=== PATIENT | female | born 1960 | race Caucasian/White ===

== ENCOUNTER 2019-03-26 17:47 | Inpatient (IN) ==
[2019-03-26 18:21] LABS: Bilirubin,Urine Negative (Negative); Blood,Urine Negative (Negative); Clarity,Urine Cloudy (Clear); Color,Urine Yellow (Yellow); Glucose,Urine (UA) Normal (Normal); Ketones,Urine 15 mg/dL (Negative); Leukocyte Esterase,Urine Moderate (Negative); Nitrite,Urine Positive (Negative); Protein,Urine Negative (Neg-Trace); Specific Gravity,Urine 1.006 (1.010-1.025); Urobilinogen,Urine Normal (Normal)
[2019-03-26 18:22] LABS: Bacteria,Urine Many per hpf (None-Few); Hyaline Casts,Urine Few per lpf (None-Few); RBC,Urine 0-3 per hpf (0-3); Squamous Epithelial Cell,Urine Many per lpf (None-Few); WBC,Urine 15-30 per hpf (0-3)
[2019-03-26 18:39] LABS: Basophils # 0.1 K/mcL (0.0-0.2); Basophils % 0.9 %; Eosinophils # 0.1 K/mcL (0.0-0.6); Eosinophils % 1.4 %; Hematocrit 43.9 % (35.3-44.9); Hemoglobin 15.2 g/dL (11.5-15.4); Immature Granulocytes % 0.5 % (0-4); Lymphocytes % 25.4 %; Mean Corpuscular HGB Conc 34.6 g/dL (31.6-35.5); Mean Corpuscular Volume 92.4 fL (83.0-100.0); Monocytes # 0.7 K/mcL (0.0-1.3); Monocytes % 8.3 %; Neutrophils # 5.1 K/mcL (1.6-8.9); Platelet Count 234 K/mcL (140-400); Red Blood Count 4.75 M/mcL (3.82-4.97); Red Cell Distribution Width 12.4 % (11.5-14.5); Segmented Neutrophils % 63.5 %
[2019-03-26] MEDS ORDERED: *HR* LORazepam 2 MG/ML VIAL IM STA (18:40)
--- NOTE | 2019-03-26 18:40 | Emergency Department Note ---
Disposition Clinical Impression: Suicidal ideation Disposition: Still a Patient Referrals: NONE,PCP [Primary Care Provider] - Forms: ED Satisfaction Letter Psych HPI - General Chief Complaint: ED Psychiatric Symptoms Stated Complaint: SI Time Seen by Provider: 03/26/19 18:00 Source: patient Mode of arrival: ambulatory Limitations: no limitations Nursing Notes Reviewed: Yes Vital Signs Reviewed: Yes - History of Present Illness HPI Narrative: 59-year-old female presenting for SI Patient states that she just wants to go to sleep and not wake up Patient denies having active plan Patient with significant life stressors, says that she has lost her second child to an automobile accident within the last 7 months Patient is tearful in room We will get psychiatric workup for medical clearance Pt complaint: suicidal ideation Onset (ago): day(s) Duration: getting worse History of similar episodes: Yes Improves with: none Worsens with: none Associated symptoms: Reports: denies other symptoms Traumatic symptoms: denies traumatic injury Treatments prior to arrival: none Self harm or harm to others: admits thoughts of self harm, denies having a plan - Related Data Home Medications Medication Instructions Recorded Confirmed Albuterol Sulfate [Ventolin Hfa] 90 mcg IH Q4H PRN 11/29/15 12/05/18 Amitriptyline [Elavil] 10 mg PO HS 11/29/15 12/05/18 Baclofen [Lioresal] 10 mg PO TID 11/29/15 12/05/18 Budesonide/Formoterol 80/4.5 2 puff IH BIDR PRN 11/29/15 12/05/18 [Symbicort 80/4.5] Furosemide [Lasix] 40 mg PO BID 11/29/15 12/05/18 Gabapentin [Neurontin] 400 mg PO TID 11/29/15 12/05/18 Lisinopril [Zestril] 20 mg PO DAILY 11/29/15 12/05/18 Multivitamin [Multivitamins] 1 each PO DAILY 11/29/15 12/05/18 Omeprazole [PriLOSEC] 40 mg PO DAILY 11/29/15 12/05/18 SUMAtriptan Succinate [Imitrex] 100 mg PO ONCE PRN 11/29/15 12/05/18 Topiramate [Topamax] 50 mg PO HS 11/29/15 12/05/18 Fluticasone/Salmeterol [Advair Hfa 2 puff IH BID 03/01/16 03/01/16 115-21 Mcg Inhaler] Quetiapine Fumarate [Seroquel] 25 cap PO DAILY 12/05/18 12/05/18 Vilazodone HCl [Viibryd] 20 mg PO DAILY 12/05/18 12/05/18 clonazePAM [Klonopin] 0.5 mg PO BID 12/05/18 12/05/18 Allergies Allergy/AdvReac Type Severity Reaction Status Date / Time azithromycin [From Zithromax] Allergy Severe Difficulty Verified 03/26/19 19:17 Breathing ceftriaxone [From Rocephin] Allergy Severe Difficulty Verified 03/26/19 19:17 Breathing oxycodone [From Percocet] AdvReac Mild Nausea Verified 03/26/19 19:17 propoxyphene AdvReac Mild Nausea Verified 03/26/19 19:17 [From Darvocet-N] All systems ED: reviewed and negative except as stated. Review of Systems: As Per HPI Constitutional: Denies: fever, chills Cardiovascular: Denies: chest pain Respiratory: Denies: dyspnea Gastrointestinal: Denies: abdominal pain, nausea, vomiting, diarrhea, constipation, hematemesis, hematochezia Genitourinary: Denies: hematuria Musculoskeletal: Denies: back pain, neck pain Neurological: Denies: headache, weakness, numbness, paresthesias Past Medical History - Past Medical History Medical history: Reports: asthma, COPD, hypertension Surgical history: Reports: cholecystectomy, hysterectomy, other Psychiatric history: Reports: anxiety, depression - Social History Smoking Status: Never smoker Smokeless Tobacco Status: No Alcohol use: Reports: occasionally Drug use: Reports: none Physical Exam - General Limitations: no limitations General appearance: alert, in no apparent distress - Head Head exam: atraumatic, normocephalic, normal inspection - Eye Eye exam: Present: normal appearance, PERRL, EOMI. Absent: scleral icterus - Neck Neck exam: Present: normal inspection, trachea midline - Chest Chest inspection: Present: normal inspection, symmetric chest wall rise - Respiratory Respiratory exam: Present: normal lung sounds bilaterally. Absent: respiratory distress, wheezes, stridor, accessory muscle use, prolonged expiratory phase - Cardiovascular Cardiovascular exam: Present: regular rate, normal rhythm, normal heart sounds, +S1, +S2. Absent: systolic murmur, diastolic murmur, JVD, +S3, +S4 - Abdominal Exam Abdominal exam: Present: soft, Non-Tender, normal bowel sounds. Absent: distention, guarding, rebound, rigidity, organomegaly - Extremities Exam Extremities exam: Present: normal inspection. Absent: pedal edema - Neurological Exam Neurological exam: Present: alert, oriented X3 - Psychiatric Psychiatric exam: Present: normal affect, normal mood - Skin Skin exam: Present: warm, dry, intact, normal color. Absent: rash, cyanosis, diaphoresis, erythema, pallor, mottled Course Course Narrative: CBC, BMP, urinalysis, urine tox screen, salicylates, EtOH, Tylenol Vital Signs Temperature 98.4 F 03/26/19 17:52 Pulse Rate 81 03/26/19 17:52 Respiratory Rate 16 03/26/19 17:52 Blood Pressure 146/113 03/26/19 17:52 O2 Sat by Pulse Oximetry 96 03/26/19 17:52 Temperature 98.4 F 03/26/19 18:27 Pulse Rate 81 03/26/19 18:27 Respiratory Rate 16 03/26/19 18:27 Blood Pressure 146/113 03/26/19 18:27 O2 Sat by Pulse Oximetry 96 03/26/19 18:27 Oxygen Delivery Oxygen Delivery Room Air Psych - MDM Narrative Medical decision making narrative: Laboratory results negative for acute pathology. Urinalysis shows acute UTI. 100 mg Macrobid given here in ED. Patient is medically cleared for psychiatric evaluation. - Lab Data Result diagrams: 03/26/19 18:13 03/26/19 18:13 Lab Results 03/26/19 03/26/19 03/26/19 Range/Units 18:00 18:00 18:13 WBC 8.0 (4.3-11.1) K/mcL RBC 4.75 (3.82-4.97) M/mcL Hgb 15.2 (11.5-15.4) g/dL Hct 43.9 (35.3-44.9) % MCV 92.4 (83.0-100.0) fL MCH 32.0 (28.0-33.3) pg MCHC 34.6 (31.6-35.5) g/dL RDW 12.4 (11.5-14.5) % Plt Count 234 (140-400) K/mcL MPV 11.0 (9.4-12.4) fL Immature Gran % 0.5 (0-4) % Seg Neutrophils % 63.5 % Lymphocytes % 25.4 % Monocytes % 8.3 % Eosinophils % 1.4 % Basophils % 0.9 % Neutrophils # 5.1 (1.6-8.9) K/mcL Lymphocytes # 2.0 (0.6-4.6) K/mcL Monocytes # 0.7 (0.0-1.3) K/mcL Eosinophils # 0.1 (0.0-0.6) K/mcL Basophils # 0.1 (0.0-0.2) K/mcL Sodium (136-145) mEq/L Potassium (3.5-5.1) mEq/L Chloride (98-107) mEq/L Carbon Dioxide (23-29) mEq/L BUN (6-20) mg/dL Creatinine (0.60-1.20) mg/dL Est GFR ( Amer) (> 60) Est GFR (Non-Af Amer) (> 60) BUN/Creatinine Ratio (6-26) Glucose (70-105) mg/dL Calculated Osmolality (280-300) Calcium (8.6-10.3) mg/dL Urine Color Yellow (Yellow) Urine Clarity Cloudy A (Clear) Urine pH 6.0 (5.0-8.0) pH Units Ur Specific Clifford 1.006 L (1.010-1.025) Urine Protein Negative (Neg-Trace) mg/dL Urine Glucose (UA) Normal (Normal) mg/dL Urine Ketones 15 H (Negative) mg/dL Urine Blood Negative (Negative) Urine Nitrite Positive A (Negative) Urine Bilirubin Negative (Negative) Urine Urobilinogen Normal (Normal) mg/dL Ur Leukocyte Esterase Moderate H (Negative) Urine Microscopic RBC 0-3 (0-3) per hpf Urine Microscopic WBC 15-30 H (0-3) per hpf Ur Squamous Epith Cells Many H (None-Few) per lpf Urine Bacteria Many H (None-Few) per hpf Hyaline Casts Few (None-Few) per lpf Salicylates (15.0-30.0) mg/dL Urine Opiates Screen Negative (Afelya=785) ng/mL Acetaminophen (10-20) mcg/mL Ur Barbiturates Screen Negative (Ubqmow=056) ng/mL Ur Phencyclidine Scrn Negative (Cutoff=25) ng/mL Ur Amphetamines Screen Negative (Ehdmnq=4092) ng/mL U Benzodiazepines Scrn Negative (Yffqmq=289) ng/mL Urine Cocaine Screen Negative (Cutoff= 300) ng/mL U Marijuana (THC) Screen Negative (Cutoff = 50) ng/mL Ur Drug Screen Interp See Below Ethyl Alcohol (Less than 10) mg/dL 03/26/19 Range/Units 18:13 WBC (4.3-11.1) K/mcL RBC (3.82-4.97) M/mcL Hgb (11.5-15.4) g/dL Hct (35.3-44.9) % MCV (83.0-100.0) fL MCH (28.0-33.3) pg MCHC (31.6-35.5) g/dL RDW (11.5-14.5) % Plt Count (140-400) K/mcL MPV (9.4-12.4) fL Immature Gran % (0-4) % Seg Neutrophils % % Lymphocytes % % Monocytes % % Eosinophils % % Basophils % % Neutrophils # (1.6-8.9) K/mcL Lymphocytes # (0.6-4.6) K/mcL Monocytes # (0.0-1.3) K/mcL Eosinophils # (0.0-0.6) K/mcL Basophils # (0.0-0.2) K/mcL Sodium 137 (136-145) mEq/L Potassium 3.0 L (3.5-5.1) mEq/L Chloride 99 (98-107) mEq/L Carbon Dioxide 29 (23-29) mEq/L BUN 12 (6-20) mg/dL Creatinine 0.96 (0.60-1.20) mg/dL Est GFR ( Amer) > 60 (> 60) Est GFR (Non-Af Amer) 59 L (> 60) BUN/Creatinine Ratio 13 (6-26) Glucose 94 (70-105) mg/dL Calculated Osmolality 284 (280-300) Calcium 9.9 (8.6-10.3) mg/dL Urine Color (Yellow) Urine Clarity (Clear) Urine pH (5.0-8.0) pH Units Ur Specific Clifford (1.010-1.025) Urine Protein (Neg-Trace) mg/dL Urine Glucose (UA) (Normal) mg/dL Urine Ketones (Negative) mg/dL Urine Blood (Negative) Urine Nitrite (Negative) Urine Bilirubin (Negative) Urine Urobilinogen (Normal) mg/dL Ur Leukocyte Esterase (Negative) Urine Microscopic RBC (0-3) per hpf Urine Microscopic WBC (0-3) per hpf Ur Squamous Epith Cells (None-Few) per lpf Urine Bacteria (None-Few) per hpf Hyaline Casts (None-Few) per lpf Salicylates < 2.5 L (15.0-30.0) mg/dL Urine Opiates Screen (Uaocld=689) ng/mL Acetaminophen < 10 L (10-20) mcg/mL Ur Barbiturates Screen (Qcqovu=602) ng/mL Ur Phencyclidine Scrn (Cutoff=25) ng/mL Ur Amphetamines Screen (Cfneqq=3741) ng/mL U Benzodiazepines Scrn (Xigale=838) ng/mL Urine Cocaine Screen (Cutoff= 300) ng/mL U Marijuana (THC) Screen (Cutoff = 50) ng/mL Ur Drug Screen Interp Ethyl Alcohol < 10 (Less than 10) mg/dL Psychiatric Medical Clearance - Medical Clearance Checklist Medical History: No Social History Section defined Current Vitals: Last Vital Signs Temp 98.4 F 03/26/19 18:27 Pulse 81 03/26/19 18:27 Resp 16 03/26/19 18:27 BP 146/113 03/26/19 18:27 Pulse Ox 96 03/26/19 18:27 Psychiatric Lab Panel: Drug Levels and Toxicity 03/26/19 03/26/19 18:00 18:13 Urine Opiates Screen Negative Acetaminophen < 10 L Ur Barbiturates Screen Negative Ur Phencyclidine Scrn Negative Ur Amphetamines Screen Negative U Benzodiazepines Scrn Negative Urine Cocaine Screen Negative U Marijuana (THC) Screen Negative Ethyl Alcohol < 10 Abnormal Labs: Abnormal lab results Potassium 3.0 mEq/L (3.5-5.1) L 03/26/19 18:13 Est GFR (Non-Af Amer) 59 (> 60) L 03/26/19 18:13 Cloudy (Clear) A 03/26/19 18:00 Ur Specific Clifford 1.006 (1.010-1.025) L 03/26/19 18:00 15 mg/dL (Negative) H 03/26/19 18:00 Positive (Negative) A 03/26/19 18:00 Ur Leukocyte Esterase Moderate (Negative) H 03/26/19 18:00 15-30 per hpf (0-3) H 03/26/19 18:00 Ur Squamous Epith Cells Many per lpf (None-Few) H 03/26/19 18:00 Many per hpf (None-Few) H 03/26/19 18:00 Salicylates < 2.5 mg/dL (15.0-30.0) L 03/26/19 18:13 Acetaminophen < 10 mcg/mL (10-20) L 03/26/19 18:13 Statement of Medical Clearance: I have evaluated the patient, reviewed diagnostic information, and certify that the patient's medical condition is sufficiently stable that transfer to the psychiatric unit does not pose a significant risk of deterioration.
[2019-03-26 18:42] LABS: Amphetamine Screen,Urine Negative ng/mL (Cutoff=1000); Barbiturate Screen,Urine Negative ng/mL (Cutoff=200); Benzodiazepines Screen,Urine Negative ng/mL (Cutoff=200); Cannabinoid Screen,Urine Negative ng/mL (Cutoff = 50); Cocaine Screen,Urine Negative ng/mL (Cutoff= 300); Opiate Screen,Urine Negative ng/mL (Cutoff=300); Phencyclidine Screen,Urine Negative ng/mL (Cutoff=25)
--- NOTE | 2019-03-26 18:45 | Emergency Department Note ---
Disposition Clinical Impression: Suicidal ideation Disposition: Still a Patient Forms: ED Satisfaction Letter General Adult HPI - General Chief complaint: ED Psychiatric Symptoms Stated complaint: SI Time Seen by Provider: 03/26/19 18:00 Source: patient Mode of arrival: ambulatory Limitations: no limitations Nursing Notes Reviewed: Yes Vital Signs Reviewed: Yes - History of Present Illness HPI Narrative: Attestation note: Patient was seen with the emergency medicine resident/nurse practitioner/physician after school program assistant/transitional resident/medical student: Dr. Rigo Andrade I have personally performed a face to face evaluation on this patient. I have reviewed and agree with history and physical examination patient management and disposition. Briefly the salient points of the case are as follows: 59-year-old female desponded suicidal ideations and for same. Complex family issues she recently lost second child she is not able see her grandchildren she is very despondent she does not have a specific plan but she mentioned specifically she wants to go to sleep and never wake up. Patient does have a prior history of SI and depression. Physical examination is benign she will undergo medical clearance and evaluation by mental health. Dispositional pending Pain Scale: 0 - Related Data Home Medications Medication Instructions Recorded Confirmed Albuterol Sulfate [Ventolin Hfa] 90 mcg IH Q4H PRN 11/29/15 12/05/18 Amitriptyline [Elavil] 10 mg PO HS 11/29/15 12/05/18 Baclofen [Lioresal] 10 mg PO TID 11/29/15 12/05/18 Budesonide/Formoterol 80/4.5 2 puff IH BIDR PRN 11/29/15 12/05/18 [Symbicort 80/4.5] Furosemide [Lasix] 40 mg PO BID 11/29/15 12/05/18 Gabapentin [Neurontin] 400 mg PO TID 11/29/15 12/05/18 Lisinopril [Zestril] 20 mg PO DAILY 11/29/15 12/05/18 Multivitamin [Multivitamins] 1 each PO DAILY 11/29/15 12/05/18 Omeprazole [PriLOSEC] 40 mg PO DAILY 11/29/15 12/05/18 SUMAtriptan Succinate [Imitrex] 100 mg PO ONCE PRN 11/29/15 12/05/18 Topiramate [Topamax] 50 mg PO HS 11/29/15 12/05/18 Fluticasone/Salmeterol [Advair Hfa 2 puff IH BID 03/01/16 03/01/16 115-21 Mcg Inhaler] Quetiapine Fumarate [Seroquel] 25 cap PO DAILY 12/05/18 12/05/18 Vilazodone HCl [Viibryd] 20 mg PO DAILY 12/05/18 12/05/18 clonazePAM [Klonopin] 0.5 mg PO BID 12/05/18 12/05/18 Allergies Allergy/AdvReac Type Severity Reaction Status Date / Time azithromycin [From Zithromax] Allergy Severe Difficulty Verified 12/05/18 10:48 Breathing ceftriaxone [From Rocephin] Allergy Severe Difficulty Verified 12/05/18 10:48 Breathing acetaminophen [From Percocet] AdvReac Mild Nausea Verified 12/05/18 10:48 oxycodone [From Percocet] AdvReac Mild Nausea Verified 12/05/18 10:48 propoxyphene AdvReac Mild Nausea Verified 12/05/18 10:48 [From Darvocet-N] Past Medical History - Past Medical History Medical history: Reports: asthma, COPD, hypertension Surgical history: Reports: cholecystectomy, hysterectomy, other Psychiatric history: Reports: anxiety, depression - Social History Smoking Status: Never smoker Smokeless Tobacco Status: No Alcohol use: Reports: occasionally Drug use: Reports: none Course Vital Signs Temperature 98.4 F 03/26/19 17:52 Pulse Rate 81 03/26/19 17:52 Respiratory Rate 16 03/26/19 17:52 Blood Pressure 146/113 03/26/19 17:52 O2 Sat by Pulse Oximetry 96 03/26/19 17:52 Temperature 98.4 F 03/26/19 18:27 Pulse Rate 81 03/26/19 18:27 Respiratory Rate 16 03/26/19 18:27 Blood Pressure 146/113 03/26/19 18:27 O2 Sat by Pulse Oximetry 96 03/26/19 18:27 Oxygen Delivery Oxygen Delivery Room Air Medical Decision Making - Lab Data Result diagrams: 03/26/19 18:13 Lab Results 03/26/19 03/26/19 03/26/19 Range/Units 18:00 18:00 18:13 WBC 8.0 (4.3-11.1) K/mcL RBC 4.75 (3.82-4.97) M/mcL Hgb 15.2 (11.5-15.4) g/dL Hct 43.9 (35.3-44.9) % MCV 92.4 (83.0-100.0) fL MCH 32.0 (28.0-33.3) pg MCHC 34.6 (31.6-35.5) g/dL RDW 12.4 (11.5-14.5) % Plt Count 234 (140-400) K/mcL MPV 11.0 (9.4-12.4) fL Immature Gran % 0.5 (0-4) % Seg Neutrophils % 63.5 % Lymphocytes % 25.4 % Monocytes % 8.3 % Eosinophils % 1.4 % Basophils % 0.9 % Neutrophils # 5.1 (1.6-8.9) K/mcL Lymphocytes # 2.0 (0.6-4.6) K/mcL Monocytes # 0.7 (0.0-1.3) K/mcL Eosinophils # 0.1 (0.0-0.6) K/mcL Basophils # 0.1 (0.0-0.2) K/mcL Urine Color Yellow (Yellow) Urine Clarity Cloudy A (Clear) Urine pH 6.0 (5.0-8.0) pH Units Ur Specific Lamar 1.006 L (1.010-1.025) Urine Protein Negative (Neg-Trace) mg/dL Urine Glucose (UA) Normal (Normal) mg/dL Urine Ketones 15 H (Negative) mg/dL Urine Blood Negative (Negative) Urine Nitrite Positive A (Negative) Urine Bilirubin Negative (Negative) Urine Urobilinogen Normal (Normal) mg/dL Ur Leukocyte Esterase Moderate H (Negative) Urine Microscopic RBC 0-3 (0-3) per hpf Urine Microscopic WBC 15-30 H (0-3) per hpf Ur Squamous Epith Cells Many H (None-Few) per lpf Urine Bacteria Many H (None-Few) per hpf Hyaline Casts Few (None-Few) per lpf Urine Opiates Screen Negative (Yyfcds=371) ng/mL Ur Barbiturates Screen Negative (Ppcrpv=830) ng/mL Ur Phencyclidine Scrn Negative (Cutoff=25) ng/mL Ur Amphetamines Screen Negative (Jeqyor=6129) ng/mL U Benzodiazepines Scrn Negative (Bhobcy=153) ng/mL Urine Cocaine Screen Negative (Cutoff= 300) ng/mL U Marijuana (THC) Screen Negative (Cutoff = 50) ng/mL Ur Drug Screen Interp See Below
[2019-03-26 18:57] LABS: Acetaminophen < 10 mcg/mL (10-20); BUN/Creatinine Ratio 13 (6-26); Blood Urea Nitrogen 12 mg/dL (6-20); Calcium 9.9 mg/dL (8.6-10.3); Carbon Dioxide 29 mEq/L (23-29); Chloride 99 mEq/L (98-107); Ethanol < 10 mg/dL (Less than 10); Glucose 94 mg/dL (70-105); Osmolality,Calculated 284 (280-300); Salicylate < 2.5 mg/dL (15.0-30.0); Sodium 137 mEq/L (136-145); eGFR For Non-African Americans 59 (> 60)
[2019-03-26] MEDS ORDERED: Ibuprofen 800 MG TABLET PO STA (20:38)
[2019-03-26] MEDS ORDERED: MOM Conc 10 ML UD.LIQ PO PRN (23:54)
[2019-03-26] MEDS ORDERED: *HR* LORazepam 1 MG TABLET PO PRN ×2 (23:54→23:56)
[2019-03-26] MEDS ORDERED: Haloperidol Lactate 5 MG/ML VIAL IM PRN (23:54)
[2019-03-26] MEDS ORDERED: *HR* LORazepam 2 MG/ML VIAL IM PRN (23:54)
[2019-03-26] MEDS ORDERED: Mag Hydrox/Al Hydrox/Simeth 30 ML UDC PO PRN (23:54)
[2019-03-27] MEDS: Gabapentin 300 MG CAPSULE PO SCH ×4 (01:19→20:59)
[2019-03-27] MEDS: Topiramate 25 MG TABLET PO SCH ×2 (01:19→21:00)
[2019-03-27] MEDS: Temazepam 15 MG CAPSULE PO SCH ×2 (01:50→21:01)
[2019-03-27] MEDS ORDERED: Vilazodone Hcl [Viibryd] 40 MG PO SCH (09:00)
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
[2019-03-27] MEDS: Lisinopril 20 MG TABLET PO SCH (09:46)
[2019-03-27] MEDS: Nitrofurantoin (BID) 100 MG CAPSULE PO SCH ×2 (09:46→21:00)
[2019-03-27] MEDS: Furosemide 40 MG TABLET PO SCH ×2 (09:47→16:11)
[2019-03-27] MEDS: BuPROPion XL (24 HR) 150 MG TABLET PO SCH (10:27)
[2019-03-27] MEDS: ARIPiprazole 5 MG TABLET PO SCH (10:27)
[2019-03-27] MEDS: Baclofen 10 MG TABLET PO SCH ×2 (16:11→21:00)
[2019-03-27] MEDS: Mirtazapine 15 MG TABLET PO SCH (21:00)
[2019-03-27] MEDS: Vilazodone Hcl [Viibryd] 40 MG PO SCH (21:06)
[2019-03-28] MEDS: Furosemide 40 MG TABLET PO SCH ×2 (09:05→16:31)
[2019-03-28] MEDS: Baclofen 10 MG TABLET PO SCH ×3 (09:05→21:19)
[2019-03-28] MEDS: ARIPiprazole 5 MG TABLET PO SCH (09:05)
[2019-03-28] MEDS: Lisinopril 20 MG TABLET PO SCH (09:06)
[2019-03-28] MEDS: Gabapentin 300 MG CAPSULE PO SCH ×3 (09:06→21:18)
[2019-03-28] MEDS: Nitrofurantoin (BID) 100 MG CAPSULE PO SCH ×2 (09:06→21:18)
[2019-03-28] MEDS: BuPROPion XL (24 HR) 150 MG TABLET PO SCH (09:06)
[2019-03-28 10:52] LABS: Albumin 4.8 g/dL (3.5-5.7); Albumin/Globulin Ratio 1.9 (1.1-2.2); Bilirubin,Total 0.4 mg/dL (0.3-1.0); Calcium 10.1 mg/dL (8.6-10.3); Chol/HDL Ratio 7.5 (0-4.9); Globulin 2.5 g/dL (2.4-3.5); Total Protein 7.3 g/dL (6.4-8.9)
[2019-03-28 11:04] LABS: Thyroid Stimulating Hormone 0.565 mcIU/mL (0.340-5.600)
[2019-03-28 11:39] LABS: Estimated Average Glucose 117 mg/dl; Hemoglobin A1C 5.7 %
[2019-03-28] MEDS: Mirtazapine 15 MG TABLET PO SCH (21:18)
[2019-03-28] MEDS: Vilazodone Hcl [Viibryd] 40 MG PO SCH (21:19)
[2019-03-28] MEDS: Topiramate 25 MG TABLET PO SCH (21:19)
[2019-03-28] MEDS: Temazepam 15 MG CAPSULE PO SCH (21:19)
--- NOTE | 2019-03-29 06:51 | Psychiatry Progress Note ---
Date of Encounter: 03/28/19 Time of Encounter: 08:00 Subjective Interval history: Patient continues to report feeling very depressed and hopeless. She remains tearful. She continues to have suicidal ideations. She feels somewhat sedated with increased medications. She is not eating. She tried to attend one group but had to leave. Review of Systems Psychiatric: Reports: depression, anxiety, abnormal sleep pattern, suicidal ideation, change in appetite, anhedonia, difficulty concentrating, hopelessness. Denies: homicidal ideation Results - Vital Signs Vital Signs: Temp Pulse Resp BP Pulse Ox 98.8 F 85 16 135/80 94 03/28/19 21:00 03/28/19 21:00 03/28/19 21:00 03/28/19 21:00 03/28/19 21:00 - Labs Labs: Laboratory Results - last 24 hr 03/28/19 03/28/19 10:05 10:05 Sodium 136 Potassium 3.0 L Chloride 101 Carbon Dioxide 26 BUN 14 Creatinine 1.18 Est GFR ( Amer) 57 L Est GFR (Non-Af Amer) 47 L BUN/Creatinine Ratio 12 Glucose 138 H Est Mean Plasma Glucose 117 Hemoglobin A1c 5.7 H Calculated Osmolality 285 Calcium 10.1 Total Bilirubin 0.4 AST 21 ALT 22 Alkaline Phosphatase 100 Serum Total Protein 7.3 Albumin 4.8 Globulin 2.5 Albumin/Globulin Ratio 1.9 Triglycerides 287 H Cholesterol 196 LDL Cholesterol, Calc 113 H VLDL Cholesterol, Calc 57 H HDL Cholesterol 26 L Cholesterol/HDL Ratio 7.5 H TSH 0.565 Assessment and Plan (1) Depression Current visit: Yes Status: Acute Additional Plan: Continue current medications. Encourage group attendance. Supportive therapy. Risks, benefits, side effects, alternatives discussed w/pt: Yes Patient agreeable to treatment: Yes Qualifiers: Depression Type: major depressive disorder Major depression recurrence: recurrent Active/Remission status: currently active Major depression episode severity: severe Psychotic features: without psychotic features Qualified Code(s): F33.2 - Major depressive disorder, recurrent severe without psychotic features Consult Discharge Plan - Plan Referrals: [facility] [Outside] - 04/09/19 2:00 pm (You have an appointment scheduled for , April 30, 2019 at 9:[address] Zina Raines M.D. for medication management. You have an appointment scheduled with Dr. Issa Cunha, PhD on March at 2:00 PM for Counseling. Please contact the office at least 24 hours in advance if you are unable to keep your appointment(s). ) Psychiatry Exam - Constitutional Vitals: Temp Pulse Resp BP Pulse Ox 98.8 F 85 16 135/80 94 03/28/19 21:00 03/28/19 21:00 03/28/19 21:00 03/28/19 21:00 03/28/19 21:00 General appearance: disheveled - Musculoskeletal Gait: slow Station: stooped Strength & Tone: mild weakness - Psychiatric Patient Orientation: Yes Person, Yes Time, Yes Place Level of alertness: Alert Behavior: anxious, tearful Psychomotor activity: Slowed Eye Contact: Minimal Contact Mood Description: Depressed Patient description of mood: sad Affect description: tearful, dysphoric Speech Volume: Soft/Quiet Speech pattern: slowed Language & Vocabulary: consistent with education Thought Process: Intact Thought Content: Yes Suicidal ideation, No Homicidal ideation Perceptual Disturbances: No Auditory hallucinations, No Visual hallucinations Attention Span Ability: Capable of Focused Attention Memory Description: Grossly Intact Patient Reliability: Reliable Historian Fund of knowledge: Yes abstraction ability, Yes aware of current events Intelligence Estimate: Average Judgment: Limited
--- NOTE | 2019-03-29 06:53 | Psychiatry Progress Note ---
Date of Encounter: 03/29/19 Time of Encounter: 06:51 Subjective Interval history: Patient continues to feel very depressed. Feels she has lost all her family now that her daughter will not talk to her. Very fixated on whether or not she should try to make amends of the situation or how to deal moving forward. She continues to report suicidal ideations with a plan to overdose. She is hopeless. Poor sleep. Poor appetite. Review of Systems Psychiatric: Reports: depression, anxiety, abnormal sleep pattern, suicidal ideation, change in appetite, anhedonia, difficulty concentrating, hopelessness. Denies: homicidal ideation Results - Vital Signs Vital Signs: Temp Pulse Resp BP Pulse Ox 98.8 F 85 16 135/80 94 03/28/19 21:00 03/28/19 21:00 03/28/19 21:00 03/28/19 21:00 03/28/19 21:00 - Labs Labs: Laboratory Results - last 24 hr 03/28/19 03/28/19 10:05 10:05 Sodium 136 Potassium 3.0 L Chloride 101 Carbon Dioxide 26 BUN 14 Creatinine 1.18 Est GFR ( Amer) 57 L Est GFR (Non-Af Amer) 47 L BUN/Creatinine Ratio 12 Glucose 138 H Est Mean Plasma Glucose 117 Hemoglobin A1c 5.7 H Calculated Osmolality 285 Calcium 10.1 Total Bilirubin 0.4 AST 21 ALT 22 Alkaline Phosphatase 100 Serum Total Protein 7.3 Albumin 4.8 Globulin 2.5 Albumin/Globulin Ratio 1.9 Triglycerides 287 H Cholesterol 196 LDL Cholesterol, Calc 113 H VLDL Cholesterol, Calc 57 H HDL Cholesterol 26 L Cholesterol/HDL Ratio 7.5 H TSH 0.565 Assessment and Plan (1) Depression Current visit: Yes Status: Acute Plan: Continue hospitalization, Close observation, Suicide Precautions per unit protocol, Encourage participation in unit milieu, Group Therapy, Monitor sleep, Monitor appetite Additional Plan: Continue current medications. Encourage group therapy. Supportive therapy. Risks, benefits, side effects, alternatives discussed w/pt: Yes Patient agreeable to treatment: Yes Qualifiers: Depression Type: major depressive disorder Major depression recurrence: recurrent Active/Remission status: currently active Major depression episode severity: severe Psychotic features: without psychotic features Qualified Code(s): F33.2 - Major depressive disorder, recurrent severe without psychotic features Consult Discharge Plan - Plan Referrals: [facility] [Outside] - 04/09/19 2:00 pm (You have an appointment scheduled for April at 9:[address] Zina Raines M.D. for medication management. You have an appointment scheduled with Dr. Issa Cunha, PhD on March at 2:00 PM for Counseling. Please contact the office at least 24 hours in advance if you are unable to keep your appointment(s). ) Psychiatry Exam - Constitutional Vitals: Temp Pulse Resp BP Pulse Ox 98.8 F 85 16 135/80 94 03/28/19 21:00 03/28/19 21:00 03/28/19 21:00 03/28/19 21:00 03/28/19 21:00 General appearance: disheveled - Musculoskeletal Gait: slow Station: stooped Strength & Tone: mild weakness - Psychiatric Patient Orientation: Yes Person, Yes Time, Yes Place Level of alertness: Alert Behavior: tearful Psychomotor activity: Slowed Eye Contact: Minimal Contact Mood Description: Depressed Patient description of mood: sad Affect description: tearful, dysphoric Speech Volume: Soft/Quiet Speech pattern: slowed Language & Vocabulary: consistent with education Thought Process: Intact Thought Content: Yes Suicidal ideation, No Homicidal ideation, No Overt delusions Perceptual Disturbances: No Auditory hallucinations, No Visual hallucinations Attention Span Ability: Capable of Focused Attention Memory Description: Grossly Intact Patient Reliability: Reliable Historian Fund of knowledge: Yes abstraction ability, Yes aware of current events Intelligence Estimate: Average Judgment: Limited Insight: Partial
[2019-03-29] MEDS: Ibuprofen 400 MG TABLET PO PRN ×3 (07:27→18:08)
[2019-03-29] MEDS: Lisinopril 20 MG TABLET PO SCH (08:43)
[2019-03-29] MEDS: ARIPiprazole 5 MG TABLET PO SCH (08:43)
[2019-03-29] MEDS: BuPROPion XL (24 HR) 150 MG TABLET PO SCH (08:43)
[2019-03-29] MEDS: Gabapentin 300 MG CAPSULE PO SCH ×3 (08:44→21:17)
[2019-03-29] MEDS: Baclofen 10 MG TABLET PO SCH ×3 (08:44→21:20)
[2019-03-29] MEDS: Furosemide 40 MG TABLET PO SCH ×2 (08:44→17:07)
[2019-03-29] MEDS: Nitrofurantoin (BID) 100 MG CAPSULE PO SCH ×2 (08:44→21:18)
[2019-03-29] MEDS: Vilazodone Hcl [Viibryd] 40 MG PO SCH (21:17)
[2019-03-29] MEDS: Mirtazapine 15 MG TABLET PO SCH (21:18)
[2019-03-29] MEDS: Temazepam 15 MG CAPSULE PO SCH (21:20)
[2019-03-29] MEDS: Topiramate 25 MG TABLET PO SCH (21:20)
[2019-03-29] MEDS: hydrOXYzine pamoate 25 MG CAPSULE PO PRN (22:24)
[2019-03-30] MEDS: Ibuprofen 400 MG TABLET PO PRN ×3 (05:07→17:27)
[2019-03-30] MEDS: Nitrofurantoin (BID) 100 MG CAPSULE PO SCH ×2 (08:43→21:11)
[2019-03-30] MEDS: Furosemide 40 MG TABLET PO SCH ×2 (08:43→16:48)
[2019-03-30] MEDS: Lisinopril 20 MG TABLET PO SCH (08:43)
[2019-03-30] MEDS: Baclofen 10 MG TABLET PO SCH ×3 (08:43→21:11)
[2019-03-30] MEDS: Gabapentin 300 MG CAPSULE PO SCH ×3 (08:44→21:09)
[2019-03-30] MEDS: ARIPiprazole 5 MG TABLET PO SCH (08:44)
[2019-03-30] MEDS: BuPROPion XL (24 HR) 150 MG TABLET PO SCH (08:44)
[2019-03-30 17:01] LABS: Alanine Aminotransferase 24 Units/L (7-52); Albumin 4.6 g/dL (3.5-5.7); Albumin/Globulin Ratio 2.2 (1.1-2.2); Alkaline Phosphatase 88 Units/L (34-104); Aspartate Amino Transferase 19 Units/L (13-39); BUN/Creatinine Ratio 20 (6-26); Bilirubin,Total 0.3 mg/dL (0.3-1.0); Blood Urea Nitrogen 17 mg/dL (6-20); Calcium 9.6 mg/dL (8.6-10.3); Carbon Dioxide 29 mEq/L (23-29); Chloride 105 mEq/L (98-107); Globulin 2.1 g/dL (2.4-3.5); Glucose 102 mg/dL (70-105); Osmolality,Calculated 292 (280-300); Potassium 3.7 mEq/L (3.5-5.1); Sodium 140 mEq/L (136-145); Total Protein 6.7 g/dL (6.4-8.9); eGFR For Non-African Americans > 60 (> 60)
[2019-03-30] MEDS: hydrOXYzine pamoate 25 MG CAPSULE PO PRN ×2 (18:28→21:08)
--- NOTE | 2019-03-30 18:46 | Psychiatry Progress Note ---
Date of Encounter: 03/30/19 Time of Encounter: 18:40 Subjective Interval history: Continues to report severe depression. SI has lessened but client remains somewhat hopeless. Has support from her significant other but feels she has lost everyone else. Very angry with her daughter in law for moving on as client is still mourning her son. Sleep and appetite have been poor. Increased anxiety since switching Wellbutrin to the XL. Wants to go back to the SR. Also wants to attend groups. Unable to do so over the weekend but feels she needs increased coping skills. Knew she would not last until her first therapy appointment in March so presented to the hospital instead. Does not feel ready to cope with stressors outside an inpatient setting at this point. Needs Potassium rechecked. Client also has urinary retention. Self-cathing at home. Will allow her to continue this in the hospital. Review of Systems Constitutional: Denies: fever, chills, weakness, weight change Eyes: Denies: eye pain, vision change Ears, Nose, Throat: Denies: ear pain, throat pain, dental pain, hearing loss, congestion Cardiovascular: Denies: chest pain, palpitations, dyspnea on exertion Respiratory: Denies: cough, dyspnea, wheezes Gastrointestinal: Denies: abdominal pain, nausea, vomiting, diarrhea, constipation Musculoskeletal: Denies: joint swelling, joint pain Neurological: Denies: headache, weakness, numbness, memory loss Psychiatric: Reports: depression, anxiety, abnormal sleep pattern, suicidal ideation, change in appetite, anhedonia, difficulty concentrating, hopelessness. Denies: homicidal ideation Results - Vital Signs Vital Signs: Temp Pulse Resp BP Pulse Ox 98.6 F 89 18 127/82 97 03/30/19 09:00 03/30/19 09:00 03/30/19 09:00 03/30/19 09:00 03/30/19 09:00 - Labs Labs: Laboratory Results - last 24 hr 03/30/19 03/30/19 16:00 16:23 Sodium 140 Potassium 3.7 Chloride 105 Carbon Dioxide 29 BUN 17 Creatinine 0.87 Est GFR ( Amer) > 60 Est GFR (Non-Af Amer) > 60 BUN/Creatinine Ratio 20 Glucose 102 Calculated Osmolality 292 Calcium 9.6 Total Bilirubin 0.3 AST 19 ALT 24 Alkaline Phosphatase 88 Serum Total Protein 6.7 Albumin 4.6 Globulin 2.1 L Albumin/Globulin Ratio 2.2 Specimen Rejected Hemolyzed Assessment and Plan (1) Major depress dis, severe Current visit: Yes Status: Acute Plan: Continue hospitalization, Close observation, Suicide Precautions per unit protocol, Encourage participation in unit milieu, Group Therapy, Monitor sleep, Monitor appetite Risks, benefits, side effects, alternatives discussed w/pt: Yes Patient agreeable to treatment: Yes Consult Discharge Plan - Plan Referrals: [facility] [Outside] - 04/09/19 2:00 pm (You have an appointment scheduled for April at 9:[address] Zina Raines M.D. for medication management. You have an appointment scheduled with Dr. Issa Cunha, PhD on March at 2:00 PM for Counseling. Please contact the office at least 24 hours in advance if you are unable to keep your appointment(s). ) Psychiatry Exam - Constitutional Vitals: Temp Pulse Resp BP Pulse Ox 98.6 F 89 18 127/82 97 03/30/19 09:00 03/30/19 09:00 03/30/19 09:00 03/30/19 09:00 03/30/19 09:00 General appearance: age & developmentally appropriate, well-groomed, well-nou rished - Musculoskeletal Gait: normal Station: relaxed Strength & Tone: normal for patient - Psychiatric Patient Orientation: Yes Person, Yes Time, Yes Place Level of alertness: Alert Behavior: calm, cooperative Psychomotor activity: Normal Eye Contact: Maintains Eye Contact Mood Description: Depressed, Anxious Affect description: tearful Speech Volume: Normal Speech pattern: normal rate, normal rhythm, normal tone, fluent, spontaneous Language & Vocabulary: consistent with education Thought Process: Linear Thought Content: Yes Suicidal ideation, No Homicidal ideation, No Overt delusions Perceptual Disturbances: No Auditory hallucinations, No Visual hallucinations Attention Span Ability: Capable of Focused Attention Memory Description: Grossly Intact Patient Reliability: Reliable Historian Fund of knowledge: Yes abstraction ability, Yes aware of current events Intelligence Estimate: Average Judgment: Fair Insight: Partial
[2019-03-30] MEDS: Vilazodone Hcl [Viibryd] 40 MG PO SCH (21:08)
[2019-03-30] MEDS: Temazepam 15 MG CAPSULE PO SCH (21:08)
[2019-03-30] MEDS: Mirtazapine 15 MG TABLET PO SCH (21:09)
[2019-03-30] MEDS: Topiramate 25 MG TABLET PO SCH (21:10)
[2019-03-30] MEDS: traZODone 50 MG TABLET PO PRN (21:11)
[2019-03-30] MEDS: BuPROPion SR (12 HR) 100 MG TABLET PO SCH (21:11)
[2019-03-31] MEDS: Ibuprofen 400 MG TABLET PO PRN (05:36)
[2019-03-31] MEDS: Furosemide 40 MG TABLET PO SCH ×2 (08:25→16:58)
[2019-03-31] MEDS: Gabapentin 300 MG CAPSULE PO SCH ×3 (08:26→21:52)
[2019-03-31] MEDS: Nitrofurantoin (BID) 100 MG CAPSULE PO SCH ×2 (08:26→21:54)
[2019-03-31] MEDS: Lisinopril 20 MG TABLET PO SCH (08:26)
[2019-03-31] MEDS: ARIPiprazole 5 MG TABLET PO SCH (08:27)
[2019-03-31] MEDS: BuPROPion SR (12 HR) 100 MG TABLET PO SCH ×2 (08:27→21:54)
[2019-03-31] MEDS: Baclofen 10 MG TABLET PO SCH ×3 (08:28→21:55)
--- NOTE | 2019-03-31 09:38 | Psychiatry Progress Note ---
Date of Encounter: 03/31/19 Time of Encounter: 09:34 Subjective Interval history: Reports she is feeling a little better. Still has a lot of depression, anxiety, and hostility toward daughter in law but suicidal thoughts have lessened. "I'm pushing them out of my mind." Attended groups yesterday and did well. Boyfriend visiting. He is requesting a family meeting with daughter and daughter in law. This would be a good idea if client amenable. She plans to think about it today and if she is agreeable will set something up for tomorrow. Still struggling with sleep and anxiety. Taking Restoril but feels it does nothing for her. Took Xanax for over thirty years and did well with it but new PCP not comfortable prescribing it and cut her off. Discussed trying something longer acting from the same drug class and client agreeable. Will substitute Klonopin for Restoril tonight. Likely discharge this week as client is showing improvements. Review of Systems Constitutional: Denies: fever, chills, weakness, weight change Eyes: Denies: eye pain, vision change Ears, Nose, Throat: Denies: ear pain, throat pain, dental pain, hearing loss, congestion Cardiovascular: Denies: chest pain, palpitations, dyspnea on exertion Respiratory: Denies: cough, dyspnea, wheezes Gastrointestinal: Denies: abdominal pain, nausea, vomiting, diarrhea, constipation Musculoskeletal: Reports: joint pain Neurological: Denies: headache, weakness, numbness, memory loss Psychiatric: Reports: depression, anxiety, abnormal sleep pattern, suicidal ideation, change in appetite, anhedonia, difficulty concentrating, hopelessness. Denies: homicidal ideation Results - Vital Signs Vital Signs: Temp Pulse Resp BP Pulse Ox 98.3 F 96 18 156/82 98 03/31/19 08:57 03/31/19 08:57 03/31/19 08:57 03/31/19 08:57 03/31/19 08:57 - Labs Labs: Laboratory Results - last 24 hr 03/30/19 03/30/19 16:00 16:23 Sodium 140 Potassium 3.7 Chloride 105 Carbon Dioxide 29 BUN 17 Creatinine 0.87 Est GFR ( Amer) > 60 Est GFR (Non-Af Amer) > 60 BUN/Creatinine Ratio 20 Glucose 102 Calculated Osmolality 292 Calcium 9.6 Total Bilirubin 0.3 AST 19 ALT 24 Alkaline Phosphatase 88 Serum Total Protein 6.7 Albumin 4.6 Globulin 2.1 L Albumin/Globulin Ratio 2.2 Specimen Rejected Hemolyzed Assessment and Plan (1) Major depress dis, severe Current visit: Yes Status: Acute Plan: Continue hospitalization, Close observation, Suicide Precautions per unit protocol, Encourage participation in unit milieu, Group Therapy, Monitor sleep, Monitor appetite Risks, benefits, side effects, alternatives discussed w/pt: Yes Patient agreeable to treatment: Yes Consult Discharge Plan - Plan Referrals: [facility] [Outside] - 04/09/19 2:00 pm (You have an appointment scheduled for April at 9:[address] Zina Raines M.D. for medication management. You have an appointment scheduled with Dr. Issa Cunha, PhD on March at 2:00 PM for Counseling. Please contact the office at least 24 hours in advance if you are unable to keep your appointment(s). ) Psychiatry Exam - Constitutional Vitals: Temp Pulse Resp BP Pulse Ox 98.3 F 96 18 156/82 98 03/31/19 08:57 03/31/19 08:57 03/31/19 08:57 03/31/19 08:57 03/31/19 08:57 General appearance: obese - Musculoskeletal Gait: normal Station: relaxed Strength & Tone: normal for patient - Psychiatric Patient Orientation: Yes Person, Yes Time, Yes Place Level of alertness: Alert Behavior: calm, cooperative Psychomotor activity: Normal Eye Contact: Maintains Eye Contact Mood Description: Depressed Affect description: congruent with mood Speech Volume: Normal Speech pattern: normal rate, normal rhythm, normal tone, fluent, spontaneous Language & Vocabulary: consistent with education Thought Process: Linear Thought Content: No Suicidal ideation, No Homicidal ideation, No Overt delusions Perceptual Disturbances: No Auditory hallucinations, No Visual hallucinations Attention Span Ability: Capable of Focused Attention Memory Description: Grossly Intact Patient Reliability: Reliable Historian Fund of knowledge: Yes abstraction ability, Yes aware of current events Intelligence Estimate: Average Judgment: Fair Insight: Partial
[2019-03-31] MEDS: Ibuprofen 800 MG TABLET PO PRN ×2 (12:15→23:51)
[2019-03-31] MEDS ORDERED: clonazePAM 1 MG TABLET PO SCH (21:00)
[2019-03-31] MEDS: Vilazodone Hcl [Viibryd] 40 MG PO SCH (21:52)
[2019-03-31] MEDS: traZODone 50 MG TABLET PO PRN (21:53)
[2019-03-31] MEDS: Topiramate 25 MG TABLET PO SCH (21:53)
[2019-03-31] MEDS: hydrOXYzine pamoate 25 MG CAPSULE PO PRN (21:54)
[2019-03-31] MEDS: Mirtazapine 15 MG TABLET PO SCH (21:55)
[2019-04-01] MEDS: Furosemide 40 MG TABLET PO SCH ×2 (08:34→15:06)
[2019-04-01] MEDS: Gabapentin 300 MG CAPSULE PO SCH ×2 (08:35→15:06)
[2019-04-01] MEDS: Nitrofurantoin (BID) 100 MG CAPSULE PO SCH (08:35)
[2019-04-01] MEDS: ARIPiprazole 5 MG TABLET PO SCH (08:35)
[2019-04-01] MEDS: Baclofen 10 MG TABLET PO SCH ×2 (08:35→15:06)
[2019-04-01] MEDS: Lisinopril 20 MG TABLET PO SCH (08:36)
[2019-04-01] MEDS: BuPROPion SR (12 HR) 100 MG TABLET PO SCH (08:36)
[2019-04-01 09:27] VITALS: BP 129/81
--- NOTE | 2019-04-01 10:43 | Discharge Summary ---
Date of Encounter: 04/01/19 Time of Encounter: 10:39 Diagnosis - Discharge Diagnosis (1) Major depress dis, severe Status: Acute Medications - Discharge Medications Prescriptions: ARIPiprazole [Abilify] 5 mg PO QAM #30 tablet Mirtazapine [Remeron] 7.5 mg PO HS #15 tablet Amitriptyline [Elavil] 10 mg PO HS 03/26/19 [History] Furosemide [Lasix] 40 mg PO BID 03/26/19 [History] Gabapentin [Neurontin] 600 mg PO TID 03/26/19 [History] Lisinopril [Zestril] 20 mg PO DAILY 03/26/19 [History] Topiramate [Topamax] 50 mg PO HS 03/26/19 [History] Vilazodone HCl [Viibryd] 40 mg PO HS 03/26/19 [History] buPROPion HCl [Bupropion HCl Sr] 200 mg PO BID 03/26/19 [History] Baclofen [Lioresal] 10 mg PO TID 03/27/19 [History] ARIPiprazole [Abilify] 5 mg PO QAM #30 tablet 04/01/19 [Rx] Mirtazapine [Remeron] 7.5 mg PO HS #15 tablet 04/01/19 [Rx] clonazePAM [Klonopin] 1 mg PO HS tablet 04/01/19 [Rx] traZODone [TraZODone] 50 mg PO HS PRN tablet 04/01/19 [Rx] Allergy/AdvReac Type Severity Reaction Status Date / Time azithromycin [From Zithromax] Allergy Severe "THROAT Verified 03/27/19 13:25 SWELLS SHUT" ceftriaxone [From Rocephin] Allergy Severe "THROAT Verified 03/27/19 13:25 SWELLS SHUT" oxycodone [From Percocet] AdvReac Mild Nausea/VOMITING/UPSET Verified 03/27/19 13:25 STOMACH propoxyphene AdvReac Mild Nausea/VOMITING/UPSET Verified 03/27/19 13:25 [From Darvocet-N] STOMACH Results Procedures and tests throughout hospitalization: Completed Lab Orders Category Date Time Status Acetaminophen Stat Lab 03/26/19 18:13 Completed Basic Metabolic Panel Stat Lab 03/26/19 18:13 Completed Complete Blood Count [HEME] Stat Lab 03/26/19 18:13 Completed Comprehensive Metabolic Panel Routine Lab 03/28/19 10:05 Completed Comprehensive Metabolic Panel Routine Lab 03/30/19 16:23 Completed Drug Screen, Urine [UCHEM] Stat Lab 03/26/19 18:00 Completed Ethanol Stat Lab 03/26/19 18:13 Completed Hgb A1C Routine Lab 03/28/19 10:05 Completed Lipid Panel Routine Lab 03/28/19 10:05 Completed Salicylate Stat Lab 03/26/19 18:13 Completed Thyroid Stimulating Hormone Routine Lab 03/28/19 10:05 Completed Urinalysis reflex Microscopic [URIN] Stat Lab 03/26/19 18:00 Completed Provider Date of admission: 03/26/19 23:48 Primary care physician: PCP NONE Discharging clinician: Lana Wolfe Psychiatry Exam - Constitutional Vitals: Temp Pulse Resp BP Pulse Ox 97.6 F 90 12 129/81 95 04/01/19 09:00 04/01/19 09:00 04/01/19 09:00 04/01/19 09:00 04/01/19 09:00 General appearance: age & developmentally appropriate, well-groomed, well- nourished - Musculoskeletal Gait: normal Station: relaxed Strength & Tone: normal for patient - Psychiatric Patient Orientation: Yes Person, Yes Time, Yes Place Level of alertness: Alert Behavior: calm, cooperative Psychomotor activity: Normal Eye Contact: Maintains Eye Contact Mood Description: Euthymic/stable Affect description: congruent with mood, full range Speech Volume: Normal Speech pattern: normal rate, normal rhythm, normal tone, fluent, spontaneous Language & Vocabulary: consistent with education Thought Process: Linear, Goal Oriented Thought Content: No Suicidal ideation, No Homicidal ideation, No Overt delusions Perceptual Disturbances: No Auditory hallucinations, No Visual hallucinations Attention Span Ability: Capable of Focused Attention Memory Description: Grossly Intact Patient Reliability: Reliable Historian Fund of knowledge: Yes abstraction ability, Yes aware of current events Intelligence Estimate: Average Judgment: Fair Insight: Partial Hospital Course Hospital course: Ms. Ibarra is a 59 year old female who was admitted secondary to SI. Medications were changed with the addition of Abilify, Remeron, and Klonopin. Client responded well to these changes. She also responded well to groups and talk therapy. She was very open and engaged with staff and her peers. She frequently sought out interactions with people. Her SI resolved and today she is denying SI, intent, or plan. Also denies HI/AH/VH. She is coping well with the loss of her children and she has a family meeting today with her remaining daughter to try and work on their relationship. She has support from her boyfriend and he will be at the meeting as well. Plan is for discharge home after the meeting. Client feels ready and states she is missing her dog and her sisters. Today she is bright, reactive, and future oriented. She is eating well and sleeping better. She is linked with outpatient services. Looks stable for discharge. Total time spent with client greater than 30 minutes. Patient was educated of her diagnosis and the risks, benefits, and side effects of this treatment and alternative treatment options and was monitored for responsiveness and side effects. Mood, anxiety, sleep, appetite, and interest improved, as did future orientation. Self-harm thoughts subsided, thinking cleared, psychosis resolved, and mood stabilized. Patient was able to attend both individual and group therapy sessions as well as meeting with the psychiatrist daily and urged to discuss any medication or treatment issues or other concerns. The patient was educated primarily by verbal means about their diagnosis and manifestations in their life. The option for treatment including group and individual therapy programming was offered to the patient in the use of medications with all their potential risks, benefits, and side effects were discussed with the patient at length. The patient was given the opportunity to ask questions and was noted to participate in the treatment in the planning process. The patient felt ready and eager to be discharged from the inpatient psychiatric unit to continue on with treatment as an outpatient. The patient agreed that she is safe for this disposition. The patient was considered to be able to participate in informed consent and decision making with respect to medical, legal, and financial issues of the time of discharge. At the time of discharge the patient adamantly denied any concerns for lethality including suicidal or homicidal thoughts ideations or plans and was future oriented toward ongoing mental health care, medical follow-up and sobriety. - Time Spent with Patient Total time spent providing and/or coordinating discharge services: Assessment and Plan - Patient/Caregiver Discharge Instructions Activity: resume usual activities as tolerated Diet: low fat, low cholesterol - Follow up Plan Follow up with: [facility] [Outside] - 04/09/19 2:00 pm (You have an appointment scheduled for April at 9:[address] Zina Raines M.D. for medication management. You have an appointment scheduled with Dr. Issa Cunha, PhD on March at 2:00 PM for Counseling. Please contact the office at least 24 hours in advance if you are unable to keep your appointment(s). ) Functional capacity at discharge: independent ambulation Overall status at discharge: Stable Disposition: Home, Self-Care Quality - Multiple Antipsychotics Patient discharged on 2 or more antipsychotic medications: No Procedures - Procedures Procedures: Medication Management, Crisis Stabilization, Supportive Therapy, Group Therapy
[2019-04-01] MEDS: Ibuprofen 800 MG TABLET PO PRN (15:07)
== END 2019-04-01 19:05 | disposition home or self-care (01) | DRG 751 ==
LOC: EMEROOARM 17:47 → 1ANU 23:48
PROVIDERS: ADMIT Psychiatry & Neurology Psychiatry; ATTEND Psychiatry & Neurology Psychiatry